=== PATIENT | male | born 1940 | race Caucasian/White ===

== ENCOUNTER 2016-11-03 11:52 | Outpatient (CLI) | payer OTHER ==
--- NOTE | 2016-11-03 12:57 | DIAGNOSTIC IMAGING REPORT ---
PROCEDURE: XR CHEST 2 VIEW INDICATION: COUGH TECHNIQUE: PA and lateral views. COMPARISON: Chest 05/17/2013 FINDINGS: Focal scarring is seen in the right upper lobe, left upper lobe and left lower lobe. These are unchanged from 2013. COPD. Heart size and pulmonary vasculature are normal. IMPRESSION: 1. COPD, no acute disease.
== END 2016-11-03 15:13 | disposition home or self-care (01) ==
LOC: XR SRH 11:52
DX: J44.9 Chronic obstructive pulmonary disease, unspecified (principal)